=== PATIENT | female | born 1945 | race Caucasian/White ===

== ENCOUNTER 2017-09-14 04:49 | Emergency (ER) | payer MEDICARE, BC ==
[2017-09-14] MEDS ORDERED: cloNIDine 0.1 MG TAB ONE (05:35)
[2017-09-14 05:45] LABS: #Basophils 0.1 thou/uL (0.0-0.2); #Eosinphils 0.3 thou/uL (0.0-0.7); #Lymphocytes 2.5 thou/uL (1.20-3.40); #Monocytes 0.8 thou/uL (0.11-0.59); #Neutrophils 3.7 thou/uL (1.40-6.50); %Basophils 0.7 % (0.0-1.0); %Eosinophils 3.6 % (0.0-10.0); %Monocytes 10.9 % (0.0-10.0); %Neutrophils 50.8 % (42.0-75.0); Hemoglobin 12.9 g/dL (12.0-16.0); Mean Corpuscular HGB CONC 32.2 g/dL (32.0-36.0); Mean Corpuscular Hemoglobin 28.3 pg (27.0-31.0); Mean Corpuscular Volume 87.8 fl (81.0-99.0); Mean Platelet Volume 7.5 fL (7.4-10.4); Platelet Count 271 thou/uL (130-400); Red Blood Cell (RBC) Count 4.56 mill/uL (4.20-5.40); White Blood Cell (WBC) Count 7.2 thou/uL (4.8-10.8)
[2017-09-14 06:01] LABS: ALT (SGPT) 19 U/L (8-55); AST (SGOT) 18 U/L (5-34); Albumin 3.8 g/dL (3.4-4.8); Alkaline Phosphatase 98 U/L (40-150); Anion Gap 12 mmol/L (10-20); BUN (Urea Nitrogen) 18 mg/dL (9.8-20.1); Bilirubin, Total 0.9 mg/dL (0.2-1.2); CK (CPK) 92 U/L (29-168); Calc. Creatinine Clearance 0 mL/min (70-130); Calcium 9.3 mg/dL (7.8-10.44); Carbon Dioxide 27 mmol/L (23-31); Chloride 104 mmol/L (98-107); Estimated GFR-MDRD 74; Globulin 2.9 g/dL (2.4-3.5); Glucose 128 mg/dL (83-110); Protein, Total 6.7 g/dL (6.0-8.3); Sodium 139 mmol/L (136-145)
[2017-09-14 06:05] LABS: CKMB 1.5 ng/mL (0-6.6); Troponin I Less than 0.010 ng/mL (< 0.028)
--- NOTE | 2017-09-14 07:46 | RAD ---
CHEST 1 VIEW: Date: 09/14/17 HISTORY: Hypertension. COMPARISON: 12/10/16. FINDINGS: Portable upright chest demonstrates right hilar fullness, which is likely accentuated by patient posi tion. Correlation made with CT from 12/10/16 does not demonstrate a right hilar mass. Lungs are hyper inflated. No consolidation or masses. No pneumothorax. No pleural effusion. No osseous abnormalities. Atherosclerosis is present. IMPRESSION: 1. Hyperinflation. 2. COPD. 3. Atherosclerosis. POS: SARA
== END 2017-09-14 06:45 | disposition home or self-care (01) ==
LOC: ERS 04:49
DX: I16.0 Hypertensive urgency (principal); E78.5 Hyperlipidemia, unspecified; I10 Essential (primary) hypertension; J45.909 Unspecified asthma, uncomplicated; H26.9 Unspecified cataract; Z79.899 Other long term (current) drug therapy
CPT/HCPCS: 36415; 71045; 80053; 82553; 84484; 85025; 93005

== ENCOUNTER 2017-09-24 09:01 | Outpatient (CLI) | payer MEDICARE, BC | END 2017-09-24 09:02 | disposition home or self-care (01) | LOC: BICMAMMO 09:01 | PROVIDERS: ATTEND Family Medicine | DX: Z12.31 Encounter for screening mammogram for malignant neoplasm of breast (principal); R92.1 Mammographic calcification found on diagnostic imaging of breast | CPT/HCPCS: 77063; 77067 ==

== ENCOUNTER 2018-05-08 09:42 | Outpatient (CLI) | payer MEDICARE, BC | END 2018-05-08 09:43 | disposition home or self-care (01) | LOC: CTENTCT 09:42 | PROVIDERS: ATTEND Specialist | DX: J32.9 Chronic sinusitis, unspecified (principal) | CPT/HCPCS: 70486 ==

== ENCOUNTER 2018-09-25 08:28 | Outpatient (CLI) | payer MEDICARE, BC ==
--- NOTE | 2018-09-25 09:09 | MMO ---
Bilateral MAMMO Bilat Screen DDI+DEA. CLINICAL HISTORY: Patient is 73 years old and is seen for screening. The patient has no family history of breast cancer. The patient has no personal history of cancer. The patient has a history of left Excisional Biopsy in November, - benign. VIEWS: The views performed were: bilateral craniocaudal with tomosynthesis and bilateral mediolateral oblique with tomosynthesis. FILMS COMPARED: The present examination has been compared to prior imaging studies performed at [facility] on 08/31/2014, 09/14/2015, 09/20/2016 and 09/24/2017. MAMMOGRAM FINDINGS: There are scattered fibroglandular densities. There are vascular calcifications seen in both breasts. There are no suspicious masses, suspicious calcifications, or new areas of architectural distortion. IMPRESSION: A ROUTINE FOLLOW-UP MAMMOGRAM IN 1 YEAR IS RECOMMENDED. THE RESULTS OF THIS EXAM WERE SENT TO THE PATIENT. ACR BI-RADS Category 2 - Benign finding MAMMOGRAPHY NOTE: 1. A negative mammogram report should not delay a biopsy if a dominant of clinically suspicious mass is present. 2. Approximately 10% to 15% of breast cancers are not detected by mammography. 3. Adenosis and dense breasts may obscure an underlying neoplasm.
== END 2018-09-25 08:29 | disposition home or self-care (01) ==
LOC: BICMAMMO 08:28
PROVIDERS: ATTEND Family Medicine
DX: Z12.31 Encounter for screening mammogram for malignant neoplasm of breast (principal)
CPT/HCPCS: 77063; 77067

== ENCOUNTER 2019-08-03 18:09 | Inpatient (IN) | payer MEDICARE, BC ==
[2019-08-03] MEDS ORDERED: hydrALAZINE 20 MG/ML VIAL SLOW IVP PRN (20:18)
[2019-08-03] MEDS ORDERED: Labetalol HCl 100 MG/20 ML VIAL SLOW IVP PRN (20:18)
[2019-08-03] MEDS ORDERED: Acetaminophen 325 MG TAB PO PRN (20:20)
[2019-08-03] MEDS ORDERED: Potassium Chloride 40 MEQ in Premix Bag 1 BAG IVPB PRN (20:24)
--- NOTE | 2019-08-03 20:32 | PDOC.HHP ---
Hospitalist HPI - History of Present Illness Vertigo History of Present Illness: PCP: Julio Galvez The patient is a 74/F with PMH significant for HTN, dyslipidemia and Asthma that presents to the ER for the above complaint. The patient reports developing vertigo while laying in bed last night at around midnight. States that she awoke , the room was spinning, with associated nausea and vomiting. She reports the symptoms were exacerbated with head movements. Denies any headaches, recent trauma or falls, dysphagia, dysarthria or weakness to her extremities. Denies any chest pain, heart palpitations, sob, or abdominal pain. She had her spouse drive her to the ER in [place], where she states she was discharged home after "running some tests". She did not remember having a brain scan or receiving any medications at that time. She was told to return to the ER if the symptoms returned. She reports that the symptoms returned around noon, while she was sitting in her recliner. She reports associated nausea and vomiting after eating lunch. She denies any focal weakness. She reports chronic tinnitus. Denies any ear drainage, fever or URI symptoms. Denies any recent changes to her medications, she denies ever having these symptoms before. Because of these symptoms, her drove her back to the ER in [place]. ED Course: In [place] CT brain negative, CTA head and neck negative CXR negative GCS 15, NIH 0 Na+ 132 K+ 3.2 Glucose 221 LA 1.3 BUN 15 Creatinine .77 w/ GFR 73 PT 12 INR 0.9 PTT 24.2 Given 1L NS meclizine Which resolved her symptoms. Allergies: Aspirin, Cefpodoxime, proxetil, cefuroxime, axetil, Errythromycin, Tetracycline Home meds: Amlodipine 5mg po q day Atorvastatin 10mg po q day HCTZ 12.5mg, 1/2 Tablet po q am Lisinopril 20mg po BID Ventolin prn Flovent prn Hospitalist ROS - Review of Systems Constitutional: denies: fever, chills Eyes: denies: pain, vision change, conjunctivae inflammation, eyelid inflammation, redness, other ENT: denies: ear pain, ear discharge, nose pain, nose discharge, nose congestion , mouth pain, mouth swelling, throat pain, throat swelling, other Respiratory: reports: cough (chronic and dry). denies: shortness of breath, hemoptysis, SOB with excertion, pleuritic pain, sputum, wheezing Cardiovascular: denies: chest pain, palpitations, orthopnea, paroxysmal noc. dyspnea, edema, light headedness, other Gastrointestinal: reports: nausea, vomiting. denies: abdominal pain, diarrhea, constipation, melena, hematochezia Genitourinary: denies: dysuria, frequency, incontinence, hematuria, retention, other Musculoskeletal: denies: neck pain, shoulder pain, arm pain, back pain, hand pain, leg pain, foot pain, other Neurological: reports: weakness (generalized). denies: change in speech, confusion Hospitalist History - Past Medical History Source: patient Cardiac: reports: HTN, Hyperlipidemia Pulmonary: reports: asthma - Past Surgical History Past Surgical History: reports: Cataract Removal, Tubal Ligation, Tonsillectomy , Other (sinus surgery) - Family History Family History: reports: cardiac disorder - Social History Smoking Status: Never smoker Alcohol: reports: Rare Drugs: reports: none Living Situation: With Family Occupation: Lives in [place] with spouse, retired from [employer] Activity level: independent ambulation - Exam General Appearance: NAD, awake alert Eye: PERRL, anicteric sclera ENT: normocephalic atraumatic, moist mucosa Neck: supple, no JVD Heart: RRR, no murmur, no gallops, no rubs, normal peripheral pulses Respiratory: CTAB, no wheezes, no rales, no ronchi, normal chest expansion, no tachypnea Gastrointestinal: soft, non-tender, non-distended, normal bowel sounds, no bruit , no guarding, no rigidity Extremities: no cyanosis, no edema Neurological: cranial nerve grossly intact, no focal deficits Musculoskeletal: normal tone, normal strength Psychiatric: normal affect, A&O x 3 Psychiatric - other findings: NIH 0, GCS 15, Modified HINTS unremarkable Hospitalist Results - Radiology Interpretation CT scan - head Status: report reviewed by me Other Status: report reviewed by me Additional Comment: CTA head and neck Hospitalist H&P A/P - Problem (1) Acute onset of severe vertigo Code(s): R42 - DIZZINESS AND GIDDINESS Status: Acute Assessment and Plan: Admit to telemetry unit, observation status Expected stay less than 2 midnights Patient asymptomatic upon exam, HINTS and NIH unremarkable CT and CTA negative Will rule out cerebellar stroke, TIA Obtain MRI and Echocardiogram Consult neurology and stroke team Permissive HTN Patient allergic to ASA, will hold anti platelet pending MRI results IVF gentle hydration check TSH, FLP, folate and B12 Continue meclizine scheduled (2) Hypokalemia Code(s): E87.6 - HYPOKALEMIA Status: Acute Assessment and Plan: Mild, 3.2 Will give 40mEq IVPB x 1 dose Recheck bmp in am (3) Hyponatremia Code(s): E87.1 - HYPO-OSMOLALITY AND HYPONATREMIA Status: Acute Assessment and Plan: Mild, 132 Gently IVF hydration Will recheck BMP in am (4) Elevated blood sugar level Code(s): R73.9 - HYPERGLYCEMIA, UNSPECIFIED Status: Acute Assessment and Plan: BS 221 Will check HA1C (5) HTN (hypertension) Code(s): I10 - ESSENTIAL (PRIMARY) HYPERTENSION Status: Chronic Assessment and Plan: Will allow permissive HTN Will hold home medications for now (6) Dyslipidemia Code(s): E78.5 - HYPERLIPIDEMIA, UNSPECIFIED Status: Chronic Assessment and Plan: Patient takes atorvastatin 10mg q am Will restart atorvastatin 10mg q am Will check lipid panel in am (7) Asthma Code(s): J45.909 - UNSPECIFIED ASTHMA, UNCOMPLICATED Status: Chronic Assessment and Plan: stable, chronic will restart patient home meds when reconciled by nursing. - Plan Plan: SCDs DVT prophylaxis Pepcid GI prophylaxis Full Code OLIVIA Murray at [phone] Patricio Cueva.
[2019-08-03 21:03] LABS: Hemoglobin A1c 6.5 % (4.0-6.0)
[2019-08-03 21:40] LABS: Thyroid Stimulating Hormone 0.6327 uIU/mL (0.35-4.94)
[2019-08-03 22:58] VITALS: BMI 17.4
[2019-08-03] MEDS: Meclizine HCl 25 MG TAB PO SCH (23:31)
[2019-08-03] MEDS: Famotidine/PF 20 mg/2ml Vial SLOW IVP SCH (23:31)
[2019-08-03] MEDS: Famotidine 20 MG TAB PO SCH (23:31)
[2019-08-03] MEDS: Sodium Chloride 0.9% 1,000 ML IV SCH (23:31)
[2019-08-04 05:29] LABS: #Basophils 0.1 thou/uL (0.0-0.2); #Eosinphils 0.2 thou/uL (0.0-0.7); #Lymphocytes 3.3 thou/uL (1.20-3.40); #Monocytes 1.3 thou/uL (0.11-0.59); %Basophils 0.9 % (0.0-1.0); %Eosinophils 1.5 % (0.0-10.0); %Lymphocytes 30.3 % (21.0-51.0); %Monocytes 12.2 % (0.0-10.0); %Neutrophils 55.1 % (42.0-75.0); Mean Corpuscular HGB CONC 31.6 g/dL (32.0-36.0); Mean Corpuscular Hemoglobin 28.7 pg (27.0-31.0); Mean Corpuscular Volume 90.8 fL (78.0-98.0); Platelet Count 323 thou/uL (130-400); RBC Distribution Width 12.8 % (11.5-14.5); Red Blood Cell (RBC) Count 4.52 mill/uL (4.20-5.40); White Blood Cell (WBC) Count 10.8 thou/uL (4.8-10.8)
[2019-08-04 05:52] LABS: Anion Gap 14 mmol/L (10-20); BUN (Urea Nitrogen) 12 mg/dL (9.8-20.1); Calc. Creatinine Clearance 45 mL/min (70-130); Calcium 9.3 mg/dL (7.8-10.44); Carbon Dioxide 23 mmol/L (23-31); Cardiac Risk 2.8 (Less than 4.5); Chloride 103 mmol/L (98-107); Cholesterol 188 mg/dl (< 200 Desired); Estimated GFR-MDRD 76; Glucose 92 mg/dL (83-110); HDL Cholesterol 67 mg/dL (>60 Neg Risk); LDL Cholesterol, Calculated 114 mg/dL; Potassium 3.5 mmol/L (3.5-5.1); Sodium 136 mmol/L (136-145); Triglycerides 37 mg/dL (Less than 150)
[2019-08-04] MEDS: Meclizine HCl 25 MG TAB PO SCH ×2 (06:21→15:36)
[2019-08-04] MEDS: Famotidine/PF 20 mg/2ml Vial SLOW IVP SCH (08:19)
[2019-08-04] MEDS ORDERED: Labetalol HCl 100 MG/20 ML VIAL SLOW IVP PRN (08:20)
--- NOTE | 2019-08-04 09:21 | MRI ---
Exam: Brain MRI without contrast HISTORY: Stroke. Dizziness. Vertigo. CVA. COMPARISON: None FINDINGS: Calvarial marrow signal intensity: Appropriate T1 signal Gradient echo sequence: Small hypointense areas noted in the left caudate nucleus, right lentiform nu cleus, right thalamus likely representing remote hemorrhagic lacunar infarct Brain parenchyma: No mass, mass effect or midline shift. Brain volume, age-appropriate. Cortical bass-white matter differentiation: Preserved Restricted diffusion: Central arterial flow voids are maintained. A small focus of restricted diffusi on in the right cerebellum. White matter signal intensities: T2, FLAIR white matter hyperintensities due to chronic small vessel ischemic changes Sinuses: Mucosal thickening of the paranasal sinuses. Significant opacification of the left mastoid a ir cells. IMPRESSION: 1. Small focus of restricted diffusion in the right cerebellum. 2. Opacification involving the paranasal sinuses and mastoid air cells 3. Remote hemorrhagic lacunar infarcts involving deep bass structures as described above 4. Scattered chronic small vessel ischemic changes of the white matter
[2019-08-04] MEDS ORDERED: Ventolin HFA Inhaler 60 PUFF INHALER INH SCH (10:00)
[2019-08-04] MEDS: Atorvastatin Calcium 10 MG TAB PO SCH (10:32)
[2019-08-04] MEDS: Famotidine 20 MG TAB PO SCH ×2 (10:33→20:27)
--- NOTE | 2019-08-04 12:22 | CON ---
DATE OF CONSULTATION: 08/04/2019 HISTORY OF PRESENT ILLNESS: Ms. Murray is a 74-year-old right-handed female with a medical history significant for hypertension, dyslipidemia, and asthma, who presented to the hospital with vertigo and dizziness. Her symptoms started around midnight and then she woke up in the morning. She felt as if the room is spinning in front of her eyes associated with nausea and vomiting. The symptoms are exacerbated with head movement. She denies any headache, head injury, dysphagia, dysarthria, loss of vision, loss of consciousness, or speech issues associated with this episode. Apparently, the symptoms got better when she came to the ED the first time in [place] and she was discharged home and then the symptoms started around noon again and she decided to come to the emergency room again for further management. She was seen in [place] and the head CT was done, which was negative. CT of the head and neck were also negative. Chest x-ray was reviewed, which did not reveal any signs of pneumonia. She was given meclizine and normal saline, which resolved her symptoms. ALLERGIES: ASPIRIN, CEFPODOXIME PROXETIL, CEFUROXIME, ERYTHROMYCIN, TETRACYCLINE, HOME MEDICATIONS: 1. Amlodipine. 2. Atorvastatin. 3. Hydrochlorothiazide. 4. Lisinopril. 5. Ventolin. 6. Flovent. NEUROLOGICAL EXAMINATION: Intact. IMAGING DATA: I did review the MRI of the brain. Review of this showed restricted diffusion in the cerebellum. Echocardiography pending. LABORATORY DATA: Significant for . ASSESSMENT: Ms. Mariajose Murray is a 74-year-old female with history significant for hypertension, hyperlipidemia, and asthma, consulted for vertigo and dizziness. MRI of brain, review of this showed restricted diffusion in the cerebellum consistent with acute intracranial pathology. PLAN: 1. MRI of brain reviewed, which shows restricted diffusion deficit in the cerebellum. MRA of the head and neck, pending. 2. Echo pending. 3. Continue home medications. 4. Continue medical management per primary team. 5. Continue statin for secondary stroke prevention. 6. The patient is allergic to aspirin, so consider Plavix for secondary stroke prevention. 7. Neuro checks every 4 hours. 8. PT/OT/Speech. We will continue to follow. Thank you for the consult. Job ID: [id number]
[2019-08-04] MEDS: PROVENTIL INHALER 6.7 G (200 INHALATIONS) INH SCH ×2 (14:02→20:26)
[2019-08-04] MEDS: Sodium Chloride 0.9% 1,000 ML IV SCH (15:32)
[2019-08-04] MEDS ORDERED: Meclizine HCl 12.5 MG TAB PO PRN (18:25)
[2019-08-04] MEDS ORDERED: Clopidogrel Bisulfate 75 MG TAB PO SCH (18:30)
[2019-08-04] MEDS ORDERED: Lisinopril 10 MG TAB PO PRN (18:31)
--- NOTE | 2019-08-04 19:16 | PDOC.HOSPP ---
- Subjective Encounter Date: 08/04/19 Encounter Time: 18:00 Subjective: Patient seen and examined for Acute CVA. No new focal deficits. Vertigo/balance improving. No new complaints. No overnight events - Objective Vital Signs & Weight: Vital Signs (12 hours) Temp Pulse Pulse Pulse Resp BP BP 08/04/19 15:00 98.9 F 83 16 08/04/19 14:02 69 16 08/04/19 11:27 98.2 F 82 16 08/04/19 09:31 94 95 148/93 H 159/92 H 08/04/19 09:29 94 95 148/93 H 152/92 H BP Pulse Ox 08/04/19 15:00 157/88 H 98 08/04/19 14:02 96 08/04/19 11:27 154/91 H 97 08/04/19 09:31 08/04/19 09:29 Weight Weight 98 lb 1.6 oz I&O: 08/03/19 08/04/19 08/05/19 06:59 06:59 06:59 Intake Total 902 Balance 902 Result Diagrams: 08/04/19 05:12 08/04/19 05:12 Radiology Reviewed by me: Yes (MRI - Rt Cerebellar CVA) EKG Reviewed by me: Yes (Tele SR) Hospitalist ROS - Review of Systems Respiratory: denies: cough, dry, shortness of breath, hemoptysis, SOB with excertion, pleuritic pain, sputum, wheezing, other Cardiovascular: denies: chest pain, palpitations, orthopnea, paroxysmal noc. dyspnea, edema, light headedness, other - Medication Medications: Active Medications Generic Name Dose Route Start Last Admin Trade Name Freq PRN Reason Stop Dose Admin Albuterol Sulfate 2 puff 08/04/19 15:00 08/04/19 14:02 Proventil Hfa INH 2 puff [id number] JACKIE Administration Atorvastatin Calcium 10 mg 08/04/19 09:00 08/04/19 10:32 Lipitor PO 10 mg DAILY JACKIE Administration Famotidine 20 mg 08/03/19 21:00 08/04/19 10:33 Pepcid PO 20 mg BID JACKIE Administration Sodium Chloride 10 ml 08/03/19 20:20 08/03/19 23:33 Flush - Normal Saline IVF 10 ml PRN PRN Administration Saline Flush - Exam General Appearance: NAD Neck: supple, no JVD Heart: RRR, no gallops, no rubs, normal peripheral pulses, murmur present (LLSB/ mitral area) Respiratory: no wheezes, no rales, no ronchi, normal chest expansion Gastrointestinal: soft, non-tender, non-distended, normal bowel sounds, no guarding, no rigidity Neurological: cranial nerve grossly intact, normal sensation to touch, no new deficit Psychiatric: normal affect, A&O x 3 Hosp A/P - Plan DVT proph w/SCDs Acute Rt Cerebellar CVA causing vertigo/dizziness New DM2 HTN HLD Mild int Asthma ASA Allergy Hypokalemia/hyponatremia PLAN: Start Plavix - Pt understands the risk Stroke team Restart Amlodipine/Lisinopril in AM Cont Statins Change Meclizine to PRN DC planning Neuro input appreciated
[2019-08-04] MEDS: Fluticasone Propionate HFA 110 MCG AER INH SCH (20:19)
--- NOTE | 2019-08-04 21:40 | CON ---
DATE OF CONSULTATION: 08/04/2019 REASON FOR CONSULTATION: Acute onset vertigo and dizziness. HISTORY OF PRESENT ILLNESS: Ms. Murray is a 74-year-old right-handed female with medical history significant for hypertension, dyslipidemia, and asthma, who presented to the hospital with acute onset vertigo and dizziness. Her symptoms started yesterday and she felt as if the room was spinning in front of her eyes associated with nausea and vomiting. The symptoms exacerbated with head movement. She denies any headache, difficulty in swallowing, speech issues, loss of vision , loss of consciousness associated with this episode. The symptoms apparently improved after she came to the ED in [place] and she was discharged, but then around noon yesterday, she again started having symptoms and decided to come to the emergency room for further management. In the ER at [place], a head CT was done which was unremarkable. CT angiogram of the head and neck were also unremarkable. Chest x-ray was done which was normal. She was given meclizine and normal saline which resolved her symptoms. Hospitalist ROS - Review of Systems Constitutional: denies: fever, chills, sweats, weakness, malaise, other Eyes: denies: pain, vision change, conjunctivae inflammation, eyelid inflammation, redness, other ENT: denies: ear pain, ear discharge, nose pain, nose discharge, nose congestion , mouth pain, mouth swelling, throat pain, throat swelling, other Respiratory: denies: cough, dry, shortness of breath, hemoptysis, SOB with excertion, pleuritic pain, sputum, wheezing, other Cardiovascular: denies: chest pain, palpitations, orthopnea, paroxysmal noc. dyspnea, edema, light headedness, other Gastrointestinal: denies: nausea, vomiting, abdominal pain, diarrhea, constipation, melena, hematochezia, other Genitourinary: denies: dysuria, frequency, incontinence, hematuria, retention, other Musculoskeletal: denies: neck pain, shoulder pain, arm pain, back pain, hand pain, leg pain, foot pain, other Neurological: reports: other (vertigo) ALLERGIES: ASPIRIN, CEFPODOXIME PROXETIL, CEFUROXIME, ERYTHROMYCIN, AND TETRACYCLINE. HOME MEDICATIONS: 1. Amlodipine. 2. Atorvastatin. 3. Hydrochlorothiazide. 4. Lisinopril. 5. Ventolin. 6. Flovent. - Medication Medications: Active Medications Generic Name Dose Route Start Last Admin Trade Name Freq PRN Reason Stop Dose Admin Albuterol Sulfate 2 puff 08/04/19 15:00 08/05/19 07:06 Proventil Hfa INH Not Given [id number] Atorvastatin Calcium 10 mg 08/04/19 09:00 08/04/19 10:32 Lipitor PO 10 mg DAILY JACKIE Administration Famotidine 20 mg 08/03/19 21:00 08/04/19 20:27 Pepcid PO 20 mg BID JACKIE Administration Fluticasone Propionate 220 mcg 08/04/19 18:30 08/05/19 07:05 Flovent Hfa 110 Mcg INH Not Given BID-RT JACKIE Sodium Chloride 10 ml 08/03/19 20:20 08/03/19 23:33 Flush - Normal Saline IVF 10 ml PRN PRN Administration Saline Flush Hospitalist History - Past Medical History Source: patient Cardiac: reports: HTN, Hyperlipidemia Pulmonary: reports: asthma - Past Surgical History Past Surgical History: reports: Cataract Removal, Tubal Ligation, Tonsillectomy , Other (sinus surgery) - Family History Family History: reports: cardiac disorder - Social History Smoking Status: Never smoker Alcohol: reports: Rare Drugs: reports: none Living Situation: With Family Occupation: Lives in [place] with spouse, retired from [employer] Activity level: independent ambulation - Exam General Appearance: awake alert Eye: PERRL, anicteric sclera ENT: normocephalic atraumatic Neck: supple Hospitalist Results - Labs Result Diagrams: 08/04/19 05:12 08/04/19 05:12 Lab results: WBC 10.8 thou/uL (4.8-10.8) 08/04/19 05:12 Hgb 13.0 g/dL (12.0-16.0) 08/04/19 05:12 Hct 41.0 % (36.0-47.0) 08/04/19 05:12 MCV 90.8 fL (78.0-98.0) 08/04/19 05:12 Plt Count 323 thou/uL (130-400) 08/04/19 05:12 Neutrophils % 55.1 % (42.0-75.0) 08/04/19 05:12 Sodium 136 mmol/L (136-145) 08/04/19 05:12 Potassium 3.5 mmol/L (3.5-5.1) 08/04/19 05:12 Chloride 103 mmol/L (98-107) 08/04/19 05:12 Carbon Dioxide 23 mmol/L (23-31) 08/04/19 05:12 BUN 12 mg/dL (9.8-20.1) 08/04/19 05:12 Creatinine 0.74 mg/dL (0.6-1.1) 08/04/19 05:12 Glucose 92 mg/dL (83-110) 08/04/19 05:12 Calcium 9.3 mg/dL (7.8-10.44) 08/04/19 05:12 - Radiology Interpretation MRI - head Status: image reviewed by me PHYSICAL EXAMINATION: 130/90 88 12 CVS: Regular rate and rhythm. CHEST: Clear. ABDOMEN: Soft. NECK: No carotid bruit. NEUROLOGICAL: Mental status, the patient is alert and oriented to person, place , and time. Cranial nerves 2 through 12 intact. Motor, muscle tone and bulk are normal. Strength 5/5 bilaterally. Cerebellar, [id number] testing intact. Reflexes 2+ bilaterally. Gait deferred due to the patient's safety reasons. Sensory intact. IMAGING DATA: I did review the MRI of the brain which showed restricted diffusion at the cerebellum consistent with acute intracranial pathology. LABORATORY DATA: Significant for hypokalemia. ASSESSMENT: Ms. Mariajose Murray is a 74-year-old female with history significant for hypertension, hyperlipidemia, and asthma, consulted for vertigo and dizziness. The patient does have symptoms of posterior circulation stroke and imaging is consistent with restricted diffusion in the cerebellum. PLAN: 1. MRI brain reviewed which shows restricted diffusion in the cerebellum consistent with an acute event. 2. Consider echocardiography to rule out cardioembolic stroke. 3. MRI of the head and neck. 4. Strict control of the blood pressure and blood glucose. 5. The patient is allergic to aspirin, so consider Plavix for secondary stroke prevention. 6. Neuro checks every 4 hours. PT/OT/Speech. We will continue to follow. Thank you for the consult. Job ID: [id number] MTDD
[2019-08-05] MEDS: Fluticasone Propionate HFA 110 MCG AER INH SCH (07:05)
[2019-08-05] MEDS: PROVENTIL INHALER 6.7 G (200 INHALATIONS) INH SCH ×2 (07:06→10:30)
[2019-08-05] MEDS ORDERED: Potassium Chloride 10 MEQ TAB PO SCH (08:00)
[2019-08-05 08:09] VITALS: BP 160/86; TEMP 97.6
[2019-08-05] MEDS: Atorvastatin Calcium 10 MG TAB PO SCH (08:42)
[2019-08-05] MEDS: Famotidine 20 MG TAB PO SCH (08:43)
[2019-08-05] MEDS ORDERED: Amlodipine 5 MG TAB PO SCH (09:00)
--- NOTE | 2019-08-05 11:26 | PDOC.HOSPP ---
- Subjective Encounter Date: 08/04/09 Subjective: Patient feels much better today. No recurrence of dizziness and vertigo - Objective Vital Signs & Weight: Vital Signs (12 hours) Temp Pulse Resp BP BP Pulse Ox 08/05/19 07:27 97.6 F 97 20 160/86 H 96 08/05/19 05:00 98.6 F 74 16 155/90 H 96 08/05/19 00:03 93 L 08/05/19 00:00 97.8 F 86 16 157/89 H 96 Weight Admit Weight 98 lb 1.6 oz Weight 98 lb 1.6 oz I&O: 08/04/19 08/05/19 08/06/19 06:59 06:59 06:59 Intake Total 902 200 Balance 902 200 Result Diagrams: 08/04/19 05:12 08/04/19 05:12 Radiology Reviewed by me: Yes EKG Reviewed by me: Yes Hospitalist ROS - Review of Systems Constitutional: denies: fever, chills, sweats, weakness, malaise, other Eyes: denies: pain, vision change, conjunctivae inflammation, eyelid inflammation, redness, other ENT: denies: ear pain, ear discharge, nose pain, nose discharge, nose congestion , mouth pain, mouth swelling, throat pain, throat swelling, other Respiratory: denies: cough, dry, shortness of breath, hemoptysis, SOB with excertion, pleuritic pain, sputum, wheezing, other Cardiovascular: denies: chest pain, palpitations, orthopnea, paroxysmal noc. dyspnea, edema, light headedness, other Gastrointestinal: denies: nausea, vomiting, abdominal pain, diarrhea, constipation, melena, hematochezia, other Genitourinary: denies: dysuria, frequency, incontinence, hematuria, retention, other Musculoskeletal: denies: neck pain, shoulder pain, arm pain, back pain, hand pain, leg pain, foot pain, other Skin: denies: rash, lesions, mary, bruising, other - Medication Medications: Active Medications Generic Name Dose Route Start Last Admin Trade Name Freq PRN Reason Stop Dose Admin Albuterol Sulfate 2 puff 08/04/19 15:00 08/05/19 10:30 Proventil Hfa INH Not Given [id number] Amlodipine Besylate 5 mg 08/05/19 09:00 08/05/19 08:42 Norvasc PO 5 mg QAM JACKIE Administration Atorvastatin Calcium 10 mg 08/04/19 09:00 08/05/19 08:42 Lipitor PO 10 mg DAILY JACKIE Administration Famotidine 20 mg 08/03/19 21:00 08/05/19 08:43 Pepcid PO Not Given BID JACKIE Fluticasone Propionate 220 mcg 08/04/19 18:30 08/05/19 07:05 Flovent Hfa 110 Mcg INH Not Given BID-RT JACKIE Potassium Chloride 10 meq 08/05/19 08:00 08/05/19 10:42 Klor-Con 10 PO Not Given QAM-WM JACKIE Sodium Chloride 10 ml 08/03/19 20:20 08/03/19 23:33 Flush - Normal Saline IVF 10 ml PRN PRN Administration Saline Flush - Exam General Appearance: awake alert Eye: PERRL, anicteric sclera ENT: normocephalic atraumatic, no oropharyngeal lesions Neck: supple, symmetric, no JVD, no thyromegaly, no lymphadenopathy, no carotid bruit Heart: RRR, no murmur, no gallops, no rubs, normal peripheral pulses Respiratory: CTAB, no wheezes Gastrointestinal: soft, non-tender (Neurologic: no dizziness, vertigo, headache or focal weakness) Neurological: cranial nerve grossly intact, normal sensation to touch, no weakness, no focal deficits, no new deficit Musculoskeletal: normal tone, normal strength, no muscle wasting Psychiatric: normal affect, normal behavior, A&O x 3 Hosp A/P (1) Stroke (cerebrum) Code(s): I63.9 - CEREBRAL INFARCTION, UNSPECIFIED Status: Acute Qualifiers: CVA mechanism: unspecified Qualified Code(s): I63.9 - Cerebral infarction, unspecified Plan: Strict control of BP and Blood glucose. Continue antiplatelet and statin for secondary stroke prevention. Regular exercise and heart healthy diet. Follow up with PCP. Stroke education provided (2) Acute onset of severe vertigo Code(s): R42 - DIZZINESS AND GIDDINESS Status: Acute (3) HTN (hypertension) Code(s): I10 - ESSENTIAL (PRIMARY) HYPERTENSION Status: Chronic Qualifiers: Hypertension type: essential hypertension Qualified Code(s): I10 - Essential (primary) hypertension Plan: Continue home medications Follow up with PCP (4) Dyslipidemia Code(s): E78.5 - HYPERLIPIDEMIA, UNSPECIFIED Status: Acute Plan: Continue ASA Follow up with PCP - Plan old records reviewed/[facility] tele Consults: other (HOME)
--- NOTE | 2019-08-05 12:11 | DIS ---
DATE OF ADMISSION: 08/04/2019 DATE OF DISCHARGE: 08/05/2019 DISCHARGE DISPOSITION: Home. FOLLOWUP: 1. Follow up with primary care physician, Dr. Julio Galvez in 1 week. 2. Follow up with Neurology, Dr. Giraldo in 2 to 3 weeks. Repeat basic metabolic profile after 1 week is recommended. Primary care physician advised to follow. DISCHARGE MEDICATIONS: Plavix 75 mg daily, meclizine as needed, potassium chloride 10 mEq daily for next 2 weeks. All other home medications were left unchanged. The patient was seen on the day of discharge. Denies any new complaints. No focal deficit. The patient is ambulating without any assistance. BRIEF HOSPITAL COURSE: The patient is a 74-year-old female with hypertension and dyslipidemia, presented to the emergency room with nausea, vomiting, and vertigo. Please refer to the history and physical for further details. The patient was admitted to the hospital with a diagnosis of vertigo, rule out CVA. She was monitored in the stroke unit. MRI of the brain was consistent with right cerebellar CVA. The patient was evaluated by Neurology, Dr. Tilley. She has been started on Plavix since she is allergic to aspirin. No changes in his statins were made. Fasting lipid showed LDL of 114, cholesterol of 188, HDL of 67, and triglyceride of 37. She will discuss with Dr. Julio Galvez on further statin titration. She was also found to have diabetes with a hemoglobin A1c of 6.5. She was counseled by the dietitian on lifestyle modification. She denies any nausea , vomiting, and vertigo at this time. She appears stable for discharge. Echo is pending at the time of discharge. A CT angiogram of the head and neck was negative for hemodynamically significant stenosis. FINAL DIAGNOSES: 1. Acute right cerebellar cerebrovascular accident causing vertigo, dizziness with nausea and vomiting. 2. New diabetic with a hemoglobin A1c 6.5. 3. Hypertension. 4. Hyperlipidemia. 5. Echo - Moderate aortic stenosis/diastolic dysfunction/EF 55-60%/Mild LVH/ Mild mitral regurg/mild tricuspid regurg. 6. Aspirin allergy. 7. Hypokalemia. 8. Hyponatremia. 9. Mild intermittent asthma. Job ID: [id number] [facility]
--- NOTE | 2019-08-05 16:05 | PQF ---
Date: 08-05-19 ATTN: DR. CARMEN PRUETT Please exercise your independent, professional judgment in responding to the clarification form. Clinical indicators are provided on the bottom of this form for your review Please check appropriate box(s): [ ] Protein Calorie Malnutrition: [ ] Mild [ x ] Moderate [ ] Severe [ ] Other Malnutrition (please specify) __ [ ] Other diagnosis [ ] Unable to determine In addition, please specify: Present on Admission (POA): [ x ] Yes [ ] No [ ] Unable to determine CLINICAL INDICATORS - SIGNS / SYMPTOMS / LABS / RESULTS AND LOCATION IN MR: PHARMACY INFORMATICIST CONSULT 08-05-19: BMI: 17.4 PHARMACY INFORMATICIST CONSULT 08-05-19: reports weight loss of 8 lb from her UBW 110-115 lb that started when taking a new blood pressure; She never gained that weight back. She thought she weighed 104 lb last week and knows she has lost weight because her clothes are looser. RD observed severe muscle/fat wasting. PHARMACY INFORMATICIST CONSULT 08-05-19: -6% wt loss x 1 week per pt report; -15% wt loss compared to stated UBW ; Severe tricep muscle wasting, limited fat stores, moderate dorsal interosseous muscle wasting. RISK FACTORS / RESULTS AND LOCATION IN MR: PHARMACY INFORMATICIST CONSULT 08-05-19: pmh: HTN, dyslipidemia, asthma, psh: sinus sx, * new diagnosis diabetes this admit? ; but struggles at home with constipation which she eats prunes and takes miralax to manage. TREATMENT / RESULTS AND LOCATION IN MR: PHARMACY INFORMATICIST CONSULT 08-05-19: 1. Recommend continue HEART HEALTHY diet. Will monitor blood glucose to see if 1800 Consistent Carbohydrate restriction would also be beneficial. 2. Recommend Glucerna Shakes PRN for meal trays less than 75%. 3. Bowel regimen PRN. 4. Provided plate method education for diabetes management, offered options for adding kcal and protein to gain weight. Moderate Malnutrition (in acute illness) Energy Intake: <75% of estimated energy requirement for > 7 days Weight Loss: 1-2%/1 week; 5%/ 1 month; 7.5%/3 months Other: mild body fat loss; mild muscle mass loss; mild fluid accumulation; Severe Malnutrition (in acute illness) Energy Intake: < 50% of estimated energy requirement for > 5 days Weight Loss: >1-2%/1 week; >5%/1 month; >7.5%/3 months Other: moderate body fat loss; moderate muscle mass loss; moderate- severe fluid accumulation; measurably reduced assembler dc field ring strength Moderate Malnutrition (in chronic illness) Energy Intake: <75% of estimated energy requirement for >1 month Weight Loss: 5%/1 month; 7.5%/3 months; 10%/6 months; 20%/1 year Other: mild body fat loss; mild muscle mass loss; mild fluid accumulation Severe Malnutrition (in chronic illness) Energy Intake: <75% of estimated energy requirement for >1 month Weight Loss: >5%/1 month; >7.5%/3 months; >10%/6 months; >20%/1 year Other: severe body fat loss; severe muscle mass loss; severe fluid accumulation ; measurably reduced assembler dc field ring strength (This form is maintained as a part of the permanent medical record) 2014 [employer]. All Rights Reserved CONCEPCION [email or web address]
[2019-08-05] MEDS ORDERED: Clopidogrel Bisulfate 75 MG TAB PO SCH (18:00)
== END 2019-08-05 11:35 | disposition home or self-care (01) | DRG 65 ==
LOC: ERS 18:09 → 2SE 20:29 → EDBD 20:29 → OBSVTOIN 08-04 11:02
PROVIDERS: ADMIT Internal Medicine; ATTEND Internal Medicine
DX: I63.541 Cerebral infarction due to unspecified occlusion or stenosis of right cerebellar artery (principal); E44.0 Moderate protein-calorie malnutrition; Z68.1 Body mass index [BMI] 19.9 or less, adult; E87.1 Hypo-osmolality and hyponatremia; R42 Dizziness and giddiness; E87.6 Hypokalemia; I10 Essential (primary) hypertension; E78.5 Hyperlipidemia, unspecified; J45.20 Mild intermittent asthma, uncomplicated; R29.700 NIHSS score 0; R40.2362 Coma scale, best motor response, obeys commands, at arrival to emergency department; R40.2142 Coma scale, eyes open, spontaneous, at arrival to emergency department; R40.2252 Coma scale, best verbal response, oriented, at arrival to emergency department; E11.65 Type 2 diabetes mellitus with hyperglycemia; I08.3 Combined rheumatic disorders of mitral, aortic and tricuspid valves; Z98.49 Cataract extraction status, unspecified eye; Z98.51 Tubal ligation status; Z88.1 Allergy status to other antibiotic agents; Z88.8 Allergy status to other drugs, medicaments and biological substances; Z79.899 Other long term (current) drug therapy; Z79.51 Long term (current) use of inhaled steroids
CPT/HCPCS: 36415; 70551; 80048; 80061; 82607; 82746; 83036; 84443; 85025; 93306; S0028

== ENCOUNTER 2019-09-27 11:42 | Observation (INO) | payer MEDICARE, BC ==
[2019-09-27 13:21] LABS: #Eosinphils 0.1 thou/uL (0.0-0.7); #Lymphocytes 0.9 thou/uL (1.20-3.40); #Neutrophils 11.9 thou/uL (1.40-6.50); %Basophils 0.2 % (0.0-1.0); %Eosinophils 0.8 % (0.0-10.0); %Lymphocytes 6.6 % (21.0-51.0); %Monocytes 6.8 % (0.0-10.0); %Neutrophils 85.6 % (42.0-75.0); Mean Corpuscular HGB CONC 33.7 g/dL (32.0-36.0); Mean Corpuscular Hemoglobin 29.7 pg (27.0-31.0); Mean Corpuscular Volume 88.1 fL (78.0-98.0); Mean Platelet Volume 8.4 fL (7.4-10.4); Platelet Count 338 thou/uL (130-400); RBC Distribution Width 12.5 % (11.5-14.5); Red Blood Cell (RBC) Count 4.72 mill/uL (4.20-5.40); White Blood Cell (WBC) Count 13.9 thou/uL (4.8-10.8)
--- NOTE | 2019-09-27 13:39 | CT ---
Exam: Head CT without contrast HISTORY: Nausea and vomiting. Sudden onset dizziness. COMPARISON: 08/03/2019 FINDINGS: Hemorrhage: No intraparenchymal hemorrhage or extra-axial hematoma. Brain parenchyma: Cortical bass-white matter differentiation is preserved. No mass effect or midline shift. Basilar cisterns are patent. Ventricular system: Ventricles and sulci are patent and symmetric. Calvarium: Intact. Sinuses and mastoid air cells: Interval opacification of the right sphenoid sinus, slightly worsening opacification ethmoid air cells is increased opacification of the left frontal sinus. IMPRESSION: 1. No acute intracranial process 2. Worsening sinus disease.
[2019-09-27 13:44] LABS: ALT (SGPT) 19 U/L (8-55); AST (SGOT) 23 U/L (5-34); Albumin 4.3 g/dL (3.4-4.8); Alkaline Phosphatase 120 U/L (40-110); Anion Gap 13 mmol/L (10-20); BUN (Urea Nitrogen) 19 mg/dL (9.8-20.1); Bilirubin, Total 0.7 mg/dL (0.2-1.2); Calc. Creatinine Clearance 0 mL/min (70-130); Calcium 9.6 mg/dL (7.8-10.44); Carbon Dioxide 27 mmol/L (23-31); Chloride 97 mmol/L (98-107); Estimated GFR-MDRD 74; Globulin 3.6 g/dL (2.4-3.5); Glucose 163 mg/dL (83-110); Protein, Total 7.9 g/dL (6.0-8.3); Sodium 133 mmol/L (136-145)
--- NOTE | 2019-09-27 13:55 | RAD ---
Exam: Chest one view HISTORY:Nausea and vomiting. Comparison: 08/03/2019 FINDINGS: Cardiac silhouette: Normal Aorta: Atherosclerosis Pulmonary vessels: Normal Costophrenic angles: Clear LUNGS: Inflation with chronic changes. Pneumothorax: None Osseous abnormalities: None IMPRESSION: COPD. Chronic lung parenchymal changes.
[2019-09-27] MEDS ORDERED: Acetaminophen 325 MG TAB PO PRN (16:50)
[2019-09-27] MEDS ORDERED: Ondansetron PF 4 MG/2 ML Vial IVP PRN (16:50)
[2019-09-27] MEDS ORDERED: Senokot S 8.6-50 MG TAB PO PRN (16:50)
[2019-09-27] MEDS ORDERED: Meclizine HCl 12.5 MG TAB PO PRN (16:52)
[2019-09-27 18:15] VITALS: BMI 17.2
[2019-09-27 18:20] LABS: INR-International Normal Ratio 0.9; PTT 27.8 sec (22.9-36.1); Prothrombin Time 12.2 sec (12.0-14.7)
--- NOTE | 2019-09-27 18:22 | HP ---
CHIEF COMPLAINT: Dizziness. HISTORY OF PRESENT ILLNESS: A 74-year-old female with a history of hypertension , hyperlipidemia, type 2 diabetes mellitus, and recent hospitalization in July for posterior cerebellar stroke, presenting with similar symptoms of nausea, vomiting, as well as vertigo. MRI of the brain that was done during the last hospitalization did show right CVA. She was started on Plavix. She was doing well until this morning. Around 6:00 a.m., she woke up with symptoms of nausea, vomiting, and vertigo. The symptoms started at 10:00 a.m. She had several episodes of emesis during the ER. Her NIH score was zero. CT head is negative. Since she is allergic to aspirin, she has continued with the Plavix during her last hospitalization. The patient feels that her dizziness spell as well as headache seems to may be related to her Plavix. She denied any facial droopiness or specific weakness or sensory impairment since this morning other than ongoing dizziness and emesis episodes. Initial imaging study was negative. REVIEW OF SYSTEMS: 13-point review of systems reviewed with the patient and pertinent addressed in the history of present illness and the rest are negative. ALLERGIES: ALLERGIC TO ASPIRIN. PAST MEDICAL HISTORY: Hypertension, hyperlipidemia, type 2 diabetes mellitus, right CVA in July 2019. MEDICATIONS: 1. Norvasc 5 mg. 2. Ventolin 2 puffs. 3. Potassium chloride 10 mEq daily. 4. Meclizine. 5. Antivert 12.5 t.i.d. p.r.n. 6. Lisinopril 20 mg twice a day. 7. Hydrochlorothiazide 6.25 mg in the morning. 8. Plavix 75 mg daily. 9. Lipitor 10 mg daily. SOCIAL HISTORY: The patient does not smoke or drink alcohol. She lives at home. FAMILY HISTORY: Significant for cardiovascular disease. PHYSICAL EXAMINATION: VITAL SIGNS: She is afebrile. GENERAL: Normotensive. She is not in acute distress. CARDIOVASCULAR: Regular rate and rhythm without murmurs, rubs, or gallops. LUNGS: Clear to auscultation bilaterally without wheezing, rales, or rhonchi. ABDOMEN: Soft, nontender, nondistended. Good bowel sounds. NEUROLOGIC: No focal deficits noted. No dysarthria. No nystagmus. Cranial nerves 2 through 12 grossly intact. Upper and lower extremities are grossly and globally intact. EXTREMITIES: Lower extremities without pitting edema. LABORATORY DATA: WBC 13.9. Rest of the CBC in the normal range. Sodium 133, creatinine 0.76, blood glucose 135. Troponin 0.15. CT head, unremarkable. IMPRESSION AND PLAN: A 74-year-old female with a history of hypertension, hyperlipidemia, and recent cerebrovascular accident, presenting with possible cerebellar stroke given ongoing nausea, vomiting, dizziness. The patient will be admitted in the stroke unit. Neuro check q.4 hours. 1. Bedside swallow. During my initial evaluation, did not exhibit any dysarthria, so we will do the bedside swallow. If successful, then continue with healthy heart diet plus diabetic diet. 2. We will also get a PT/OT evaluation. I am going to repeat the MRI given her ongoing symptoms, even though that was done in July 2019. I will also consult the Neurology. Defer the 2D echo as that has been done during the last hospitalization and the echo showed mild left ventricular hypertrophy with ejection fraction of 60%. 3. Leukocytosis. We will check the UA. Her chest x-ray did not show any infiltrate other than chronic COPD parenchymal changes. 4. Mild hyponatremia. We will repeat the panel. 5. Defer the Lovenox for deep venous thrombosis prophylaxis until MRI results are back. 6. Full code. Job ID: [id number] MTDD
[2019-09-27 18:36] LABS: ALT (SGPT) 19 U/L (8-55); AST (SGOT) 23 U/L (5-34); Albumin 4.5 g/dL (3.4-4.8); Alkaline Phosphatase 129 U/L (40-110); Bilirubin, Direct 0.3 mg/dL (0.1-0.3); Bilirubin, Total 0.7 mg/dL (0.2-1.2); CRP (Inflammatory) 0.62 mg/dL (= or < 0.5); Protein, Total 8.2 g/dL (6.0-8.3)
[2019-09-27] MEDS: Mometasone 100 MCG/PUFF (1 INHALER) INH SCH (19:04)
[2019-09-27] MEDS: Albuterol Sulfate 2.5 mg/0.5 ml Neb NEB SCH (19:04)
[2019-09-27] MEDS: Lisinopril 20 MG TAB PO SCH (20:40)
[2019-09-27 23:45] LABS: Bacteria/HPF None Seen HPF (None Seen); Bilirubin Negative (Negative); Blood, Urine Negative (Negative); Clarity Clear (Clear); Glucose, Urine (Dipstick) 100 mg/dL (Negative); Leukocyte 250 Leu/uL (Negative); Nitrite Negative (Negative); Protein, Urine (Dipstick) Negative (Neg-Trace); RBC/HPF None Seen HPF (0-3); Squamous Epithelial 0-3 HPF (0-3); Urobilinogen Normal mg/dL (Less than 2)
[2019-09-27 23:46] LABS: Urine Culture Reflex Yes Yes
[2019-09-28 05:00] LABS: #Eosinphils 0.2 thou/uL (0.0-0.7); #Lymphocytes 2.4 thou/uL (1.20-3.40); #Monocytes 0.9 thou/uL (0.11-0.59); #Neutrophils 3.7 thou/uL (1.40-6.50); %Basophils 0.7 % (0.0-1.0); %Eosinophils 3.1 % (0.0-10.0); %Lymphocytes 33.4 % (21.0-51.0); %Monocytes 11.8 % (0.0-10.0); Mean Corpuscular HGB CONC 31.9 g/dL (32.0-36.0); Mean Corpuscular Hemoglobin 28.8 pg (27.0-31.0); Mean Corpuscular Volume 90.1 fL (78.0-98.0); Mean Platelet Volume 8.2 fL (7.4-10.4); Platelet Count 321 thou/uL (130-400); RBC Distribution Width 12.7 % (11.5-14.5); Red Blood Cell (RBC) Count 4.53 mill/uL (4.20-5.40); White Blood Cell (WBC) Count 7.2 thou/uL (4.8-10.8)
[2019-09-28] MEDS: Albuterol Sulfate 2.5 mg/0.5 ml Neb NEB SCH ×2 (07:08→10:42)
[2019-09-28] MEDS: Mometasone 100 MCG/PUFF (1 INHALER) INH SCH (07:09)
[2019-09-28] MEDS ORDERED: Potassium Chloride 10 MEQ TAB PO SCH (08:00)
[2019-09-28] MEDS: Lisinopril 20 MG TAB PO SCH (08:25)
[2019-09-28] MEDS ORDERED: Clopidogrel Bisulfate 75 MG TAB PO SCH (09:00)
[2019-09-28] MEDS ORDERED: Hydrochlorothiazide 25 MG TAB PO SCH (09:00)
[2019-09-28] MEDS ORDERED: Amlodipine 5 MG TAB PO SCH (09:00)
--- NOTE | 2019-09-28 11:06 | MRI ---
Exam: Brain MRI with and without contrast HISTORY: CVA versus stroke. Headache and dizziness. COMPARISON: 08/04/2019 FINDINGS: Gradient echo sequence: No acute hemorrhage. Remote hemorrhagic lacunar infarcts in the deep bass str uctures, unchanged Calvarium: Appropriate T1 marrow signal intensity Midline brain parenchyma: Unremarkable Cerebrum:No parenchymal mass, mass effect or midline shift. Brain volume, age-appropriate. Cortical g ray-white matter differentiation is preserved. T2 and FLAIR white matter hyperintensities due to chronic small vessel change. Ventricles: No evidence of hydrocephalus. Sinuses and mastoid air cells: Persistent mucosal thickening of the visualized paranasal sinuses. Par tial opacification of the left mastoid air cells Diffusion: Central arterial flow is maintained. Absent restricted diffusion. Postcontrast images: No pathologic enhancement of the brain parenchyma. IMPRESSION: 1. Absent restricted diffusion. No acute infarction 2. No pathologic enhancement of the brain parenchyma 3. Stable chronic small vessel ischemic changes of the white matter. 4. Redemonstration of sinus disease and opacification of the left mastoid air cells.
[2019-09-28 12:19] VITALS: BP 175/89; TEMP 97.7
--- NOTE | 2019-09-28 13:03 | DIS ---
DATE OF ADMISSION: 09/27/2019 DATE OF DISCHARGE: 09/28/2019 DISCHARGE DISPOSITION: Home. FOLLOWUP: 1. Follow up with Dr. Julio Galvez in 1 week. 2. Follow up with Neurology in 2 to 3 weeks. 3. Follow up with ENT in 1 week. 4. Fall precaution was emphasized. 5. The patient was advised to follow up on urine cultures. DISCHARGE MEDICATIONS: Discharge medications are same as admission medications. The patient was seen on the day of discharge. Denies any new complaints. VITAL SIGNS: Vital signs showed temperature 98.6, pulse rate of 82, blood pressure of 131/76, and O2 saturation of 95% on room air. BRIEF HOSPITAL COURSE: The patient is a 74-year-old female with recent right cerebellar CVA, on Plavix presented to the hospital yesterday with dizziness followed by nausea and vomiting. Please refer to the history and physical for further details. The patient was admitted to the Stroke Unit with a diagnosis of suspected TIA versus acute CVA. The patient was monitored in the Stroke Unit. NIH was 0. She had an MRI of the brain that was negative for acute CVA. It showed chronic small-vessel ischemic changes. There was also re-demonstration of the sinus disease and opacification of the left mastoid air cells. The patient was evaluated by Neurology, Dr. Giraldo. Dr. Giraldo recommended to continue Plavix. She was advised to follow up with ENT as outpatient. Her symptoms are most likely secondary to peripheral vertigo. The patient denies any urinary symptoms. Her urinalysis in the emergency room showed wbc's of 11 to 20 without any bacteria. Urine cultures so far has shown no growth. She was not started on any antibiotics. She was advised to follow up with urine cultures as outpatient. The patient has been cleared by Neurology for discharge. FINAL DIAGNOSES: 1. Peripheral vertigo. 2. Dizziness with nausea and vomiting secondary to above. 3. Recent right cerebellar cerebrovascular accident, on Plavix. 4. Diet-controlled diabetes mellitus type 2. 5. Hypertension. 6. Hyperlipidemia. 7. Moderate aortic stenosis. 8. Chronic diastolic heart failure. 9. Hypertensive heart disease. 10. Mild mitral regurgitation. 11. Mild tricuspid regurgitation. 12. Mild persistent asthma. 13. Aspirin allergy. The patient understands the above plan of care. Job ID: [id number]
--- NOTE | 2019-09-28 14:02 | CON ---
DATE OF CONSULTATION: 09/28/2019 CONSULTING PHYSICIAN: Hospitalist Service. IMPRESSION: 1. Vertiginous attack, possibly peripheral in origin. 2. Hypertension. 3. Hyperlipidemia. 4. Diabetes. PLAN: 1. Continue Plavix. 2. Follow up with Dr. Ryan for peripheral vestibular testing and allergy testing for aspirin. HISTORY OF PRESENT ILLNESS: Ms. Murray is a 74-year-old woman, who reports having recurrent episode of vague dizziness associated with nausea and vomiting. She described a pressure sensation in the back of the head when this was coming on. Her symptoms lasted more than 2 hours. She had a similar event a few months ago. She was diagnosed with a posterior circulation stroke. She was started on Plavix. She has a bit of difficulty taking a statin, but did up her statin dosing to daily. She had an initial CT, which was negative. Followup MRI of the brain showed some [id number] chronic small vessel ischemic changes in the periventricular region. No evidence of an acute infarct. Her prior echocardiogram showed ejection fraction of 60%. Her lab was unremarkable other than possible urinary tract infection. She feels like she is back to her baseline at this point. PAST MEDICAL HISTORY: As listed above. ALLERGIES: ASPIRIN, CEFTIN, ERYTHROMYCIN, TETRACYCLINE, AND VANTIN. SOCIAL HISTORY: No tobacco or alcohol. She lives at home with her . FAMILY HISTORY: Noncontributory. REVIEW OF SYSTEMS: Ten-system review of systems is otherwise negative. PHYSICAL EXAMINATION: GENERAL: She is a thin, elderly lady, sitting at the bedside, in no distress. Vital SIGNS: Have been stable. She is afebrile. HEENT: Pupils are equal and reactive. Conjunctivae are clear. Oropharynx clear. NECK: Supple. No lymphadenopathy. EXTREMITIES: No cyanosis, clubbing, or edema. NEUROLOGIC: She was alert and cooperative. Her speech is fluent and clear. Cranial nerves were intact. Motor exam showed equal strength. She can stand and walk independently. Sensations intact to touch. No abnormal movements were seen. LABORATORY DATA: EKG shows normal sinus rhythm. SUMMARY: This is an elderly lady, who had a prolonged episode of vertigo with head pressure, nausea, and vomiting, which ruled out for any evidence of an ischemic event. On this occasion, she really does not have any other options for stroke prevention at this point. I suggested that she follow up for allergy testing and further peripheral vestibular testing can be undertaken as well. I would be happy to see her in followup as needed. Job ID: [id number]
[2019-09-28] MEDS ORDERED: Atorvastatin Calcium 10 MG TAB PO SCH (21:00)
--- NOTE | 2019-10-04 12:15 | EKG ---
Test Reason : Blood Pressure : / mmHG Vent. Rate : 087 BPM Atrial Rate : 087 BPM P-R Int : 140 ms QRS Dur : 076 ms QT Int : 380 ms P-R-T Axes : 080 055 067 degrees QTc Int : 457 ms Normal sinus rhythm Normal ECG Confirmed by LISA KUO DO ([id number]), website/blog editor ROBERTO QUINTERO ([id number]) on 10/04/2019 12:15:38 PM Referred By: Confirmed By:LISA KUO DO
== END 2019-09-28 13:41 | disposition home or self-care (01) ==
LOC: ERS 11:42 → 2SE 15:11
PROVIDERS: ADMIT Internal Medicine; ATTEND Internal Medicine
DX: H81.399 Other peripheral vertigo, unspecified ear (principal); E11.9 Type 2 diabetes mellitus without complications; I11.0 Hypertensive heart disease with heart failure; I50.32 Chronic diastolic (congestive) heart failure; E78.5 Hyperlipidemia, unspecified; I35.0 Nonrheumatic aortic (valve) stenosis; I08.1 Rheumatic disorders of both mitral and tricuspid valves; J45.30 Mild persistent asthma, uncomplicated; E87.1 Hypo-osmolality and hyponatremia; Z86.73 Personal history of transient ischemic attack (TIA), and cerebral infarction without residual deficits; Z79.02 Long term (current) use of antithrombotics/antiplatelets; Z79.899 Other long term (current) drug therapy; Z88.1 Allergy status to other antibiotic agents; Z88.6 Allergy status to analgesic agent; Z88.8 Allergy status to other drugs, medicaments and biological substances
CPT/HCPCS: 70450; 70553; 71045; 80053; 80076; 81001; 82728; 82962; 84484; 85025 ×2; 85610; 85730; 86140; 87086; 93005; 94640; 97116; 97139; 99285; G0378 ×3; 36415; 36416; J7611

== ENCOUNTER 2021-01-18 09:32 | Emergency (ER) | payer MEDICARE, BC ==
[2021-01-18 10:50] LABS: #Basophils 0.1 thou/uL (0.0-0.2); #Eosinphils 0.1 thou/uL (0.0-0.7); #Lymphocytes 1.6 thou/uL (1.20-3.40); #Monocytes 1.8 thou/uL (0.11-0.59); #Neutrophils 9.6 thou/uL (1.40-6.50); %Basophils 0.4 % (0.0-1.0); %Eosinophils 0.9 % (0.0-10.0); %Lymphocytes 12.2 % (21.0-51.0); %Monocytes 13.7 % (0.0-10.0); %Neutrophils 72.7 % (42.0-75.0); Hemoglobin 12.9 g/dL (12.0-16.0); Mean Corpuscular HGB CONC 32.3 g/dL (32.0-36.0); Mean Corpuscular Hemoglobin 28.5 pg (27.0-31.0); Mean Corpuscular Volume 88.3 fL (78.0-98.0); Mean Platelet Volume 6.9 fL (7.4-10.4); Platelet Count 495 thou/uL (130-400); RBC Distribution Width 13.1 % (11.5-14.5); Red Blood Cell (RBC) Count 4.52 mill/uL (4.20-5.40); White Blood Cell (WBC) Count 13.2 thou/uL (4.8-10.8)
[2021-01-18 11:14] LABS: ALT (SGPT) 40 U/L (8-55); AST (SGOT) 28 U/L (5-34); Albumin 3.4 g/dL (3.4-4.8); Alkaline Phosphatase 153 U/L (40-110); Anion Gap 15 mmol/L (10-20); BUN (Urea Nitrogen) 13 mg/dL (9.8-20.1); Bilirubin, Total 0.6 mg/dL (0.2-1.2); Calc. Creatinine Clearance 0 mL/min (70-130); Calcium 8.7 mg/dL (7.8-10.44); Carbon Dioxide 28 mmol/L (23-31); Chloride 94 mmol/L (98-107); Glucose 113 mg/dL (83-110); Protein, Total 6.4 g/dL (5.8-8.1); Sodium 133 mmol/L (136-145)
[2021-01-18] MEDS ORDERED: cefTRIAXone\\ROCEPHIN 1 GM VIAL ONE (12:26)
[2021-01-18 18:30] LABS: SARS-CoV-2 PCR by NAA Not Detected (NotDetected)
== END 2021-01-18 13:50 | disposition home or self-care (01) ==
LOC: ERS 09:32
DX: J18.9 Pneumonia, unspecified organism (principal); Z20.822 Contact with and (suspected) exposure to COVID-19; E78.5 Hyperlipidemia, unspecified; E78.00 Pure hypercholesterolemia, unspecified; I10 Essential (primary) hypertension; J45.909 Unspecified asthma, uncomplicated; Z86.73 Personal history of transient ischemic attack (TIA), and cerebral infarction without residual deficits; Z79.899 Other long term (current) drug therapy
CPT/HCPCS: 71045; 80053; 83605; 84484; 85025; 87040; 93005; 94760; U0003; U0005; 36415; 96374; J0696

== ENCOUNTER 2021-01-31 08:56 | Outpatient (CLI) | payer MEDICARE, BC | END 2021-01-31 08:57 | disposition home or self-care (01) | LOC: BICRAD 08:56 | PROVIDERS: ATTEND Family Medicine | DX: J18.9 Pneumonia, unspecified organism (principal); R91.8 Other nonspecific abnormal finding of lung field | CPT/HCPCS: 71046 ==

== ENCOUNTER 2021-08-15 08:45 | Outpatient (CLI) | payer MEDICARE, BC | END 2021-08-15 08:46 | disposition home or self-care (01) | LOC: BICULT 08:45 | PROVIDERS: ATTEND Internal Medicine Cardiovascular Disease | DX: E04.1 Nontoxic single thyroid nodule (principal) | CPT/HCPCS: 76536 ==